=== PATIENT | female | born 1995 | race Caucasian/White ===

== ENCOUNTER → 2016-06-04 | Outpatient (CLI) | payer OTHER | LOC: OD 11:31 | PROVIDERS: ATTEND Nurse Practitioner Acute Care | DX: R10.9 Unspecified abdominal pain (principal) | CPT/HCPCS: 87086 ==

== ENCOUNTER 2018-06-23 10:44 | Day surgery (SDC) | payer OTHER ==
[~2018-06-23 10:44] MED LIST: MIDAZOLAM 2 MG/2 ML INJ ONE; PROPOFOL INJ 200 MG/20 ML VIAL IV ONE
[2018-06-23] MEDS ORDERED: PROMETHAZINE HCL INJ 25 MG/1 ML VIAL IV PRN ×2 (14:00)
[2018-06-23] MEDS ORDERED: DIPHENHYDRAMINE HCL 50 MG/ML VIAL IV PRN (14:00)
[2018-06-23] MEDS ORDERED: MEPERIDINE HCL/PF INJ 25 MG/1 ML DISP.SYRIN IV PRN (14:00)
[2018-06-23] MEDS ORDERED: FENTANYL CITRATE INJ/PF 100 MCG/2 ML AMPUL IV PRN ×3 (14:00)
--- NOTE | 2018-06-23 14:36 | Operative Report ---
Operative Report DATE OF SURGERY: 06/23/18 Operative Report: The risks, benefits and alternatives of the procedure including the risk of bleeding, perforation requiring surgery have been explained to the patient in detail and informed consent has been obtained. Patient is brought back to the operating room and placed in the left, lateral decubital position. Timeout was called. Propofol medication is administered. Rectal examination is done which did not reveal any masses, tears or fissures. An Olympus videoscope was introduced into the patient's rectum. The scope was then carefully advanced all the way to the cecum. The cecum was identified by the usual anatomical landmarks including the ileocecal valve as well as the appendiceal office. Photodocumentation is obtained. The scope was then sequentially pulled back via the various segments of the colon including the ascending colon, hepatic flexure, transverse colon, splenic flexure, descending colon and finally into the rectosigmoid portions of the colon. Retroflexion maneuver was performed. PREOPERATIVE DIAGNOSIS: Blood in stool POSTOPERATIVE DIAGNOSIS: Mild terminal ileitis status post biopsy. Left-sided colon inflammation status post biopsy. Internal hemorrhoids OPERATION: Colonoscopy with biopsy SURGEON: TL BREWSTER ANESTHESIA: LMAC TISSUE REMOVED OR ALTERED: As noted above. COMPLICATIONS: None. ESTIMATED BLOOD LOSS: None. INTRAOPERATIVE FINDINGS: As noted above. PROCEDURE: Patient tolerated the procedure well. No immediate postprocedure complications are noted. Patient discharged in good condition. Discharge date 06/23/2018. Discharge diet: Regular. Discharge activity: Regular. 2-3-week follow-up to discuss findings. Patient is instructed to call the office or proceed to the emergency room should there be any further proximal questions. Wait on the pathology.
[2018-06-23 16:09] VITALS: BP 110/68
== END 2018-06-23 15:40 | disposition home or self-care (01) ==
LOC: OROUT 10:44
PROVIDERS: ATTEND Internal Medicine Gastroenterology
DX: K52.9 Noninfective gastroenteritis and colitis, unspecified (principal); K64.8 Other hemorrhoids; K92.1 Melena; K21.9 Gastro-esophageal reflux disease without esophagitis; E66.9 Obesity, unspecified; Z68.31 Body mass index [BMI] 31.0-31.9, adult
CPT/HCPCS: 45380; 36415; 84703; 88305 ×2; J2250; J2704; 811

== ENCOUNTER 2018-07-31 09:28 | Day surgery (SDC) | payer OTHER ==
[~2018-07-31 09:28] MED LIST changes: -MIDAZOLAM 2 MG/2 ML INJ ONE
[2018-07-31] MEDS ORDERED: ONDANSETRON HCL INJ/PF 4 MG/2 ML SDV IV PRN (11:53)
[2018-07-31] MEDS ORDERED: FENTANYL CITRATE INJ/PF 100 MCG/2 ML AMPUL IV PRN ×3 (11:53)
--- NOTE | 2018-07-31 12:20 | Operative Report ---
Operative Report DATE OF SURGERY: 07/31/18 Operative Report: The risks benefits and alternatives of the procedure explained to the patient in detail and informed consent is obtained.A GIF Olympus video scope was inserted into the patient's mouth and hypopharynx, the esophagus is identified intubated and insufflated, the scope was then advanced through the esophagus stomach and duodenum, retroflexion maneuver is done, the esophagus stomach and first and second portions of the duodenum examined. PREOPERATIVE DIAGNOSIS: Gastroesophageal reflux disease rule out peptic ulcer disease POSTOPERATIVE DIAGNOSIS: Gastritis status post biopsy for Helicobacter pylori. Esophagitis OPERATION: EGD with biopsy SURGEON: TL BREWSTER ANESTHESIA: LMAC TISSUE REMOVED OR ALTERED: As noted above. COMPLICATIONS: None. ESTIMATED BLOOD LOSS: None. INTRAOPERATIVE FINDINGS: As noted above. PROCEDURE: Patient tolerated the procedure well. No immediate postprocedure complications are noted. Patient discharged in good condition. Discharge date 07/31/2018. Discharge diet: Regular. Discharge activity: Regular. 2-3-week follow-up to discuss findings. Patient is instructed to call the office or proceed to the emergency room should there be any further proximal questions. I will wait on the pathology.
[2018-07-31 12:41] VITALS: BP 107/65
== END 2018-07-31 12:41 | disposition home or self-care (01) ==
LOC: OROUT 09:28
PROVIDERS: ATTEND Internal Medicine Gastroenterology
DX: K29.50 Unspecified chronic gastritis without bleeding (principal); K21.0 Gastro-esophageal reflux disease with esophagitis; Z79.899 Other long term (current) drug therapy; E06.3 Autoimmune thyroiditis
CPT/HCPCS: 43239; 81025; 88342 ×2; 88305 ×2; J2704; 731

== ENCOUNTER → 2018-12-02 | Outpatient (CLI) | payer OTHER ==
[2018-12-02 12:33] LABS: BACTERIA (WET MOUNT) 4+ BACTERIA SEEN; EPITHELIALS (WET MOUNT) 4+ EPITHELIALS SEEN; T.VAGINALIS (WET MOUNT) NO TRICHOMONAS SEEN; WBCS (WET MOUNT) 2+ WBCS SEEN; YEAST (WET MOUNT) NO YEAST SEEN
[2018-12-02 14:16] LABS: CHLAM PCR NOT DETECTED (NOT DETECT)
== END ==
LOC: LAB 12:04
PROVIDERS: ATTEND Nurse Practitioner Acute Care
DX: N89.8 Other specified noninflammatory disorders of vagina (principal); R21 Rash and other nonspecific skin eruption
CPT/HCPCS: 87210; 87250; 87491; 87591

== ENCOUNTER → 2019-07-12 | Outpatient (CLI) | payer BC ==
--- NOTE | 2019-07-12 15:18 | RADIOLOGY REPORT (SQ) ---
EXAM DESCRIPTION: CT BONE LENGTH COMPLETED DATE/TIME: 07/12/2019 2:23 pm REASON FOR STUDY: LLD (Q72.819) Q72.819 CONGENITAL SHORTENING OF UNSPECIFIED LOWER LIMB COMPARISON: None. TECHNIQUE: CT scanogram of the bilateral lower extremities is performed including pelvis to ankles. Measurements of femur, tibia, and entire lower extremities performed by the radiologist and saved to PACS. All CT scanners at this facility use dose modulation, iterative reconstruction, and/or weight based d osing when appropriate to reduce radiation dose to as low as reasonably achievable (ALARA). [facility]: Dose Right [facility]: CareDose [facility]: Dose Right [facility]: Teradose 4D [facility]: [employer] RADIATION DOSE: mGy. LIMITATIONS: None. FINDINGS: RIGHT: FEMUR: 430 cm. TIBIA: 339 cm. TOTAL RIGHT LOWER EXTREMITY LENGTH: 774 cm. LEFT: FEMUR: 434 cm. TIBIA: 343 cm. TOTAL LEFT LOWER EXTREMITY LENGTH: 779 cm. IMPRESSION: Slight leg length discrepancy as above. TECHNICAL DOCUMENTATION: JOB ID: [id number] Quality ID # [id number]: Final reports with documentation of one or more dose reduction techniques (e.g., Au tomated exposure control, adjustment of the mA and/or kV according to patient size, use of iterative reconstruction technique) 2010 [employer]- All Rights Reserved Reading location - IP/workstation name: [email or web address]
== END ==
LOC: RAD 14:10
PROVIDERS: ATTEND Podiatrist Foot & Ankle Surgery
DX: Q72.819 Congenital shortening of unspecified lower limb (principal)
CPT/HCPCS: 77073

== ENCOUNTER 2019-11-28 21:19 | Emergency (ER) | payer BC ==
[2019-11-28 21:32] VITALS: BP 125/84
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
== END 2019-11-28 23:05 | disposition home or self-care (01) ==
LOC: ER 21:19
DX: S06.0X0A Concussion without loss of consciousness, initial encounter (principal); R51 Headache; R11.0 Nausea; R42 Dizziness and giddiness; X58.XXXA Exposure to other specified factors, initial encounter
CPT/HCPCS: 99283

== ENCOUNTER → 2020-05-08 | Outpatient (CLI) | payer BC ==
[~2020-05-08] MED LIST changes: +COVID-19 VACCINE (PFIZER)/PF 30 MCG/0.3 ML VIAL IM ONE; +EPINEPHRINE INJ/PF 1 MG/1 ML AMPULE IM PRN; -PROPOFOL INJ 200 MG/20 ML VIAL IV ONE
== END ==
LOC: EMPHEALTH 13:44
PROVIDERS: ATTEND Internal Medicine
DX: Z23 Encounter for immunization (principal)
CPT/HCPCS: 91300

== ENCOUNTER → 2020-05-29 | Outpatient (CLI) | payer BC | LOC: EMPHEALTH 13:44 | PROVIDERS: ATTEND Internal Medicine | DX: Z23 Encounter for immunization (principal) | CPT/HCPCS: 91300 ==